=== PATIENT | female | born 1970 | race Caucasian/White ===

== ENCOUNTER 2018-01-15 06:58 | Day surgery (SDC) | payer OTHER ==
[~2018-01-15 06:58] MED LIST: AMBIEN10 MG PO; CELEXA10 MG PO; KLONOPIN; PRILOSEC10 MG
== END 2018-01-15 16:10 | disposition home or self-care (01) ==
LOC: CIR.AMB 06:58
DX: G56.02 Carpal tunnel syndrome, left upper limb (principal)